=== PATIENT | male | born 1980 | race Caucasian/White ===

== ENCOUNTER → 2018-05-05 | Outpatient (CLI) | payer MEDICAID ==
[~2018-05-05] VITALS: Ht 180.3 cm; Wt 113.6 kg
[~2018-05-05] MED LIST: GLUC-88 PO; MULT1TAB60 PO; OMEG-172 PO; [UNRECOGNIZED DRUG - CODE] PO
[2018-05-05 09:19] LABS: MD NO; MEAN CORPUSCULAR VOLUME 90.2 fL (81-97); RED BLOOD COUNT 5.45 x10^6/uL (4.38-5.82)
[2018-05-05 09:20] LABS: MICROSCOPIC NOT IND
[2018-05-05 09:27] LABS: ANION GAP 7 mmol/L (5-15); CALCIUM 8.7 mg/dL (8.5-10.1); CHLORIDE 108 mmol/L (98-107); CREATININE 1.02 mg/dL (0.7-1.3)
[2018-05-05 09:29] LABS: CULTURE INDICATED? NO
[2018-05-05 09:34] LABS: INTERNATIONAL NORMALIZED RATIO 1.01 (0.93-1.1); PROTHROMBIN TIME 10.7 Seconds (9.6-11.5)
[2018-05-05 09:38] LABS: BASOPHILS # (AUTO) 0.05 x10^3/uL (0-0.1); BASOPHILS % (AUTO) 1 % (0-1); EOSINOPHILS # (AUTO) 0.24 x10^3/uL (0-0.4); EOSINOPHILS % (AUTO) 3 % (1-7); HCT (SEDRATE) 49.1 % (39.2-51.8); LYMPHOCYTES # (AUTO) 3.43 x10^3/uL (1-3.4); LYMPHOCYTES % (AUTO) 36 % (22-44); MEAN CORPUSCULAR HEMOGLOBIN 30.5 pg (27.5-34.5); MEAN CORPUSCULAR HGB CONC 33.8 g/dL (33.2-36.2); MONOCYTES % (AUTO) 8 % (2-9); NEUTROPHILS # (AUTO) 4.99 x10^3/uL (1.8-6.8); NEUTROPHILS % (AUTO) 53 % (42-75); PLATELET COUNT 301 x10^3/uL (130-400); RED CELL DISTRIBUTION WIDTH 13.9 % (9.4-14.8)
== END | disposition home or self-care (01) ==
LOC: RAD 08:00 → EDSTATUS 05-08 13:00
PROVIDERS: ATTEND Orthopaedic Surgery Orthopaedic Surgery of the Spine
DX: S83.282A Other tear of lateral meniscus, current injury, left knee, initial encounter (principal); Z53.8 Procedure and treatment not carried out for other reasons; X58.XXXA Exposure to other specified factors, initial encounter; Y93.89 Activity, other specified; Y92.89 Other specified places as the place of occurrence of the external cause; Y99.8 Other external cause status; Z79.899 Other long term (current) drug therapy
CPT/HCPCS: 36415; 71046; 80048; 81003; 85025; 85610; 85651; 85730; 93005